=== PATIENT | female | born 1955 | race Caucasian/White ===

== ENCOUNTER → 2016-09-22 | Outpatient (CLI) | payer BC ==
[~2016-09-22] MED LIST: ASPI-611 PO; ATOR10TA20 PO; CALC-52 PO; LATA2.5D7 BOTH EYES
== END ==
LOC: WC.BC 08:01
DX: Z12.31 Encounter for screening mammogram for malignant neoplasm of breast (principal)
CPT/HCPCS: 77063; G0202